=== PATIENT | male | born 1940 | race Caucasian/White ===

== ENCOUNTER → 2020-06-16 | Outpatient (CLI) | payer OTHER ==
--- NOTE | 2020-06-23 08:09 | PF ---
[address] [address] PULMONARY FUNCTION REPORT Name: ROSEANNEJULIAN R Room: [facility]#: [id number] Admission: 06/16/20 Attend Phys: Dick Ventura MD Discharge: Date of : 42 Report #: [id number] THIS REPORT FOR: //name// CC: Dick Ventura Tawn Sempek DATE OF SERVICE: 06/16/2020 Only spirometry was performed. The FEV1/FVC ratio is normal at 70% with FVC decreased to 68% and FEV1 decreased to 67%. The [id number] is decreased to 61%. After the administration of a bronchodilator, there is a 32% increase in QPF11-54, which is below criteria for reversibility. There is essentially no change in the spirometry after the administration of a bronchodilator. The patient's post-bronchodilator FEV1 is noted to be 1.96 liters. IMPRESSION: There is a restrictive pattern noted on spirometry. This could indicate true restriction or could also indicate underlying obstruction, neuromuscular weakness, or poor effort. Clinical correlation is advised. If clinically indicated, full pulmonary function tests with lung volumes can be considered. <ELECTRONICALLY SIGNED> By: Bentley Covarrubias MD 06/23/20 0809 [id number] 1925Asamy Covarrubias MD /nt
== END ==
LOC: M.PUL 09:38
PROVIDERS: ATTEND Orthopaedic Surgery
DX: R06.02 Shortness of breath (principal)